=== PATIENT | male | born 1975 | race Caucasian/White ===

== ENCOUNTER → 2020-03-16 | Outpatient (CLI) | payer OTHER ==
[2020-03-16 13:16] LABS: ALBUMIN 4.3 g/dL (3.4-5.0); BILIRUBIN,DIRECT 0.2 mg/dL (0.00-0.20); BILIRUBIN,TOTAL 1.2 mg/dL (0.1-1.0); TOTAL PROTEIN, SERUM 7.3 g/dL (6.4-8.2)
== END | disposition home or self-care (01) ==
LOC: MSR 09:52
PROVIDERS: ATTEND Orthopaedic Surgery
DX: M41.85 Other forms of scoliosis, thoracolumbar region (principal); J84.10 Pulmonary fibrosis, unspecified; M19.049 Primary osteoarthritis, unspecified hand; E55.9 Vitamin D deficiency, unspecified
CPT/HCPCS: 72070; 72100; 82306; 36415-L1; 36415-TC; 71046; 71046-TC; 80076-TC